=== PATIENT | male | born 1980 | race Two or more races ===

== ENCOUNTER 2020-12-12 08:13 | Emergency (ER) | payer MEDICAID ==
[~2020-12-12] VITALS: Ht 170.2 cm; Wt 97.5 kg
[2020-12-12 08:27] VITALS: BP_SYST 181
[2020-12-12] MEDS ORDERED: cefTRIAXone 1 GM VIAL ONE (08:27)
[2020-12-12] MEDS ORDERED: ONDANSETRON 4 MG ODT TAB ONE (08:29)
[2020-12-12] MEDS ORDERED: MORPHINE 2 MG/ML INJ. SYRINGE ONE (08:29)
[2020-12-12] MEDS ORDERED: cefTRIAXone 1 GM in LIDOCAINE 1%, 20 ML MDV 2.1 ML IM ONE (08:30)
[2020-12-12] MEDS ORDERED: ONDANSETRON 4 MG ODT TAB PO ONE (08:30)
[2020-12-12] MEDS ORDERED: MORPHINE 2 MG/ML INJ. SYRINGE IM ONE (08:30)
[2020-12-12] MEDS ORDERED: ACET325T PO (09:02)
[2020-12-12] MEDS ORDERED: OFLO5DRO5 LEFT EAR (09:02)
[2020-12-12] MEDS ORDERED: AMOX-426 PO (09:02)
[2020-12-12] MEDS ORDERED: IBUP-1969 PO (09:02)
[2020-12-12 09:51] VITALS: BP_SYST 128
== END 2020-12-12 09:51 | disposition home or self-care (01) ==
LOC: SED 08:13
DX: H60.92 Unspecified otitis externa, left ear (principal); L03.211 Cellulitis of face; Z79.899 Other long term (current) drug therapy
CPT/HCPCS: 96372; 99284; J0696; J2270; Q0162

== ENCOUNTER 2022-10-12 16:15 | Emergency (ER) | payer MEDICAID ==
[~2022-10-12] VITALS: Ht 170.2 cm; Wt 99.8 kg
[~2022-10-12 16:15] MED LIST: ACET325T PO; AMOX-426 PO; IBUP-1969 PO; OFLO5DRO5 LEFT EAR
[2022-10-12 17:06] VITALS: BP_SYST 124
[2022-10-12 17:41] LABS: CALCIUM 9.1 mg/dL (8.4-11.0); CREATININE 0.97 mg/dL (0.55-1.30); HEMATOCRIT 43.4 % (36-54); HEMOGLOBIN 14.6 g/dL (14.0-18.0); MEAN CORPUSCULAR HEMOGLOBIN 27 pg (27-31); MEAN CORPUSCULAR HGB CONC 34 % (32-36); MEAN CORPUSCULAR VOLUME 81 fL (79.0-98.0); PLATELET COUNT (AUTO) 190 K/uL (130-430); RED BLOOD CELL COUNT(AUTO) 5.34 MIL/uL (4.2-6.2); WHITE BLOOD COUNT (AUTO) 2.8 K/uL (4.8-10.8)
[2022-10-12 17:46] LABS: ALBUMIN 3.5 g/dL (3.4-4.8); C-REACTIVE PROTEIN QUANT 3.1 mg/dL (0-0.5); TOTAL BILIRUBIN 0.2 mg/dL (0.0-1.0)
[2022-10-12 18:30] LABS: BAND % (MANUAL) 2 % (0-6); BASOPHILS % (MANUAL) 0 % (0-2); EOSINOPHILS % (MANUAL) 0 % (0-7); LYMPHOCYTES % (MANUAL) 35 % (20-46); MONOCYTES % (MANUAL) 7 % (0-11)
--- NOTE | 2022-10-12 20:36 | NUR ---
Attempted to call pt and relay results for Influenza A at and brother (Ramses) answered call. Per brother, pt does not have a personal phone. Results relayed to brother and advised for pt to call if he has any questions/concerns.
[2022-10-12] MEDS ORDERED: OSEL75CA PO (20:54)
[2022-10-12] MEDS ORDERED: IBUP-1971 PO (20:54)
[2022-10-12] MEDS ORDERED: OSELTAMIVIR PHOSPHATE 75 MG CAPSULE ONE (21:05)
[2022-10-12] MEDS ORDERED: IBUPROFEN 800 MG TABLET PO ONE (21:15)
[2022-10-12] MEDS ORDERED: OSELTAMIVIR PHOSPHATE 75 MG CAPSULE PO ONE (21:15)
[2022-10-12] MEDS ORDERED: CLIN-22 PO (21:23)
[2022-10-12 21:36] VITALS: BP_SYST 128
--- NOTE | 2022-10-12 21:36 | NUR ---
[id number] seen and evaluated by Dr Orr as documented by him
--- NOTE | 2022-10-12 21:36 | NUR ---
Patient given written and verbal discharge instructions and verbalizes understanding. ER MD discussed with patient the results and treatment provided. Patient in stable condition. Rx of Clindamycin, Ibuprofen and Tamiflu given. Patient educated on pain management and to follow up with PMD. Opportunity for questions provided and answered.
== END 2022-10-12 21:36 | disposition home or self-care (01) ==
LOC: SED 16:15
DX: J10.1 Influenza due to other identified influenza virus with other respiratory manifestations (principal); J40 Bronchitis, not specified as acute or chronic; R51.9 Headache, unspecified; R05.9 Cough, unspecified; R09.81 Nasal congestion; Z79.899 Other long term (current) drug therapy; Z20.822 Contact with and (suspected) exposure to COVID-19
CPT/HCPCS: 85027; 80053; 85007; 86140; 36415; 71045; 99284; 87804 ×2; 87426; G9035